=== PATIENT | male | born 1975 | race Caucasian/White ===

== ENCOUNTER 2017-12-20 17:38 | Emergency (ER) | payer OTHER ==
[~2017-12-20] VITALS: Ht 180.3 cm; Wt 79.6 kg
[2017-12-20] MEDS ORDERED: MOBIC7.5 MG PO (17:43)
[2017-12-20 18:39] LABS: HEMATOCRIT 40.4 % (38.0-50.0); HEMOGLOBIN 14.3 G/DL (12.5-16.6); MCHC 35.4 G/DL (30.0-36.0); MCV 87.6 FL (86-99); PLATELET COUNT 233 K/uL (156-360); RBC DIS.WIDTH-CV 12.2 % (11.8-14.6); RBC DIS.WIDTH-SD 38.9 % (39-53); RED BLOOD COUNT 4.61 M/uL (4.00-5.50); WHITE BLOOD COUNT 8.9 K/uL (4.1-10.2)
[2017-12-20 18:52] LABS: ALBUMIN 4.2 g/dL (3.2-4.8); CHLORIDE 110 mEq/L (99-109); SODIUM 142 mEq/L (136-147)
[2017-12-20 18:55] LABS: GLUCOSE 91 mg/dL (70-99); TOTAL PROTEIN 6.7 g/dL (6.4-8.3)
[2017-12-20 18:57] LABS: TOTAL BILIRUBIN 1.3 mg/dL (0.0-1.0)
[2017-12-20 18:58] LABS: ALKALINE PHOSPHATASE 75 IU/L (3-129); CREATININE 0.8 mg/dL (0.6-1.3); GFR ESTIMATE (CALCULATED) > 59 mL/min/ (58.99-99999)
[2017-12-20 18:59] LABS: UREA NITROGEN (BUN) 10 mg/dL (9-23)
[2017-12-20 19:00] LABS: AST (GOT) 14 IU/L (2-34)
[2017-12-20 19:01] LABS: ALT (GPT) 14 IU/L (3-49)
[2017-12-20 19:02] LABS: LIPASE 12 U/L (1.0-51.0)
[2017-12-20 21:29] LABS: APPEARANCE CLEAR ((CLEAR)); BILIRUBIN NEGATIVE; BLOOD NEGATIVE; COLOR YELLOW ((YELLOW)); GLUCOSE (STRIP) NEGATIVE; KETONES NEGATIVE; LEUKOCYTES NEGATIVE; NITRITE NEGATIVE; PROTEIN (STRIP) NEGATIVE; SPECIFIC GRAVITY 1.008 (1.000-1.030); UCUL ADDED? NO; UROBILINOGEN 0.2 MG/DL (0.2-1.0)
[2017-12-20 21:45] LABS: AMPHETAMINE NEGATIVE (500 ng/mL); BARBITURATES NEGATIVE (200 ng/mL); BENZODIAZEPINES NEGATIVE (150 ng/mL); BUPRENORPHINE NEGATIVE (10 ng/mL); COCAINE NEGATIVE (150 ng/mL); METHADONE NEGATIVE (200 ng/mL); METHAMPHETAMINE NEGATIVE (500 ng/mL); OPIATES (MORPHINE) NEGATIVE (100 ng/mL); OXYCODONE NEGATIVE (100 ng/mL); PHENCYCLIDINE NEGATIVE (25 ng/mL); PROPOXYPHENE NEGATIVE (300 ng/mL); THC CANNABINOIDS NEGATIVE (50 ng/mL); TRICYCLIC ANTIDEPRESSANTS NEGATIVE (300 ng/mL)
[2017-12-20] MEDS ORDERED: ZOFRAN4 MG PO (21:56)
[2017-12-20] MEDS ORDERED: BENTYL10 MG PO (21:56)
[2017-12-20 22:19] VITALS: BP 129/77
== END 2017-12-20 22:22 | disposition home or self-care (01) ==
LOC: EME 17:38
PROVIDERS: Physician Assistant
DX: R10.10 Upper abdominal pain, unspecified (principal); R11.2 Nausea with vomiting, unspecified; Z88.6 Allergy status to analgesic agent; Z87.891 Personal history of nicotine dependence
CPT/HCPCS: 74176; 76705; 80053; 81003; 83690; 85027; 99281; 99285; J2405; J3010; J7030